=== PATIENT | male | born 1950 | race Asian ===

== ENCOUNTER 2017-02-28 08:27 | Emergency (ER) | payer MEDICARE, MEDICAID ==
[~2017-02-28] VITALS: Ht 182.9 cm; Wt 125.0 kg
[~2017-02-28 08:27] MED LIST: ALBU8.5H8 INH; BUDE10.2 INH; CEPH-368 PO; CYCL-259 PO; GABA-826 PO; HYDR25TA6 PO; INSU100V13 INJ; LISI-167 PO; LOVA20TA2 PO; METF500T4 PO; MONT10TA6 PO; NAPR500T PO; PRED20TA PO; TRAZ50TA18 PO
[2017-02-28] MEDS ORDERED: ASPIRIN 81 MG TABLET CHEW ONE (09:13)
[2017-02-28] MEDS ORDERED: ASPIRIN 81 MG TABLET CHEW PO ONE (09:30)
[2017-02-28] MEDS ORDERED: SODIUM CHLORIDE FLUSH 10ML SYR IVF ONE (09:30)
[2017-02-28 09:35] LABS: HEMATOCRIT 42.7 % (39.2-51.8); HEMOGLOBIN 14.4 g/dL (13.7-18.0); WHITE BLOOD COUNT 4.7 x10^3/uL (3.4-10)
[2017-02-28 09:45] LABS: BLOOD UREA NITROGEN 20 mg/dL (7-18)
[2017-02-28] MEDS ORDERED: GABA300C10 PO (09:47)
[2017-02-28] MEDS ORDERED: LOVA20TA2 PO (09:47)
[2017-02-28] MEDS ORDERED: ATOR10TA9 PO (09:47)
[2017-02-28] MEDS ORDERED: METF500T4 PO (09:47)
[2017-02-28] MEDS ORDERED: ALBU1.25 NEB (09:47)
[2017-02-28 09:50] LABS: ASPARTATE AMINO TRANSFERASE 24 U/L (15-37)
[2017-02-28 09:54] LABS: IS PT STATUS REG ER OR PRE ER? YES
[2017-02-28] MEDS ORDERED: ALBUTEROL SULFATE 2.5 MG/3 ML ONE (10:19)
[2017-02-28] MEDS ORDERED: LIDOCAINE 1%, 20ML SQ ONE (10:30)
[2017-02-28] MEDS ORDERED: ALBUTEROL SULFATE 2.5 MG/3 ML NPPB ONE (10:30)
[2017-02-28] MEDS ORDERED: LIDOCAINE 1%, 20ML ONE (10:45)
[2017-02-28 11:40] VITALS: BP 143/75
== END 2017-02-28 11:42 | disposition home or self-care (01) ==
LOC: MERGE 09:49 → ED 09:49
DX: L02.213 Cutaneous abscess of chest wall (principal); J20.8 Acute bronchitis due to other specified organisms; E11.65 Type 2 diabetes mellitus with hyperglycemia; J45.909 Unspecified asthma, uncomplicated
CPT/HCPCS: 10060; 36415; 71020; 80053; 84484; 85025; 93005; 94640; 99285; J7613

== ENCOUNTER 2017-03-03 08:08 | Emergency (ER) | payer MEDICARE, MEDICAID ==
[~2017-03-03] VITALS: Ht 182.9 cm; Wt 127.1 kg
[~2017-03-03 08:08] MED LIST changes: +ALBU1.25 NEB; +ATOR10TA9 PO; +GABA300C10 PO
[2017-03-03 08:10] VITALS: BP 151/80
[2017-03-03] MEDS ORDERED: BACITRACIN ZINC OINT 500U/GM, 0.9 GM ONE (08:50)
== END 2017-03-03 08:55 | disposition home or self-care (01) ==
LOC: ED 08:52
DX: L02.213 Cutaneous abscess of chest wall (principal); J44.9 Chronic obstructive pulmonary disease, unspecified; E11.65 Type 2 diabetes mellitus with hyperglycemia; I10 Essential (primary) hypertension; E78.00 Pure hypercholesterolemia, unspecified
CPT/HCPCS: 99283

== ENCOUNTER 2017-03-13 08:01 | Emergency (ER) | payer MEDICARE, MEDICAID ==
[~2017-03-13] VITALS: Ht 182.9 cm; Wt 124.0 kg
[2017-03-13] MEDS ORDERED: methylPREDNISolone SOD SUCC 125 MG/2 ML ONE (09:23)
[2017-03-13 09:30] LABS: HEMATOCRIT 42.3 % (39.2-51.8); HEMOGLOBIN 14.3 g/dL (13.7-18.0); WHITE BLOOD COUNT 5.1 x10^3/uL (3.4-10)
[2017-03-13] MEDS ORDERED: SODIUM CHLORIDE FLUSH 10ML SYR IVF ONE (09:30)
[2017-03-13] MEDS ORDERED: methylPREDNISolone SOD SUCC 125 MG/2 ML IVP ONE (09:30)
[2017-03-13] MEDS ORDERED: ALBUTEROL SULFATE 2.5 MG/3 ML NPPB ONE (09:30)
[2017-03-13] MEDS ORDERED: ALBUTEROL SULFATE 2.5 MG/3 ML ONE (09:30)
[2017-03-13 09:43] LABS: ASPARTATE AMINO TRANSFERASE 21 U/L (15-37); BLOOD UREA NITROGEN 21 mg/dL (7-18)
[2017-03-13 09:54] LABS: IS PT STATUS REG ER OR PRE ER? YES
[2017-03-13 10:14] VITALS: BP 113/65
== END 2017-03-13 10:20 | disposition home or self-care (01) ==
LOC: ED 08:55
DX: J44.9 Chronic obstructive pulmonary disease, unspecified (principal); I10 Essential (primary) hypertension; E11.65 Type 2 diabetes mellitus with hyperglycemia; E78.00 Pure hypercholesterolemia, unspecified; Z87.891 Personal history of nicotine dependence
CPT/HCPCS: 36415; 71010; 80053; 83880; 84443; 84484; 85025; 85610; 93005; 94640; 96374; 99285; J2930; J7613

== ENCOUNTER 2017-06-01 18:50 | Inpatient (IN) | payer MEDICARE, MEDICAID ==
[~2017-06-01] VITALS: Ht 182.9 cm; Wt 117.3 kg
[~2017-06-01 18:50] MED LIST changes: +NAPR-856 PO; -NAPR500T PO; +OSEL75CA PO
[2017-06-01] MEDS ORDERED: SODIUM CHLORIDE FLUSH 10ML SYR IVF ONE (20:00)
[2017-06-01 20:30] LABS: BASOPHILS # (AUTO) 0.02 x10^3/uL (0-0.1); BASOPHILS % (AUTO) 0 % (0-1); EOSINOPHILS # (AUTO) 0.17 x10^3/uL (0-0.4); EOSINOPHILS % (AUTO) 2 % (1-7); LYMPHOCYTES # (AUTO) 0.97 x10^3/uL (1-3.4); LYMPHOCYTES % (AUTO) 11 % (22-44); MD NO; MEAN CORPUSCULAR HEMOGLOBIN 29.7 pg (27.5-34.5); MEAN CORPUSCULAR HGB CONC 33.2 g/dL (33.2-36.2); MEAN CORPUSCULAR VOLUME 89.5 fL (81-97); MEAN PLATELET VOLUME 7.8 fL (7.4-10.4); MONOCYTES # (AUTO) 0.61 x10^3/uL (0.2-0.8); MONOCYTES % (AUTO) 7 % (2-9); NEUTROPHILS # (AUTO) 7.05 x10^3/uL (1.8-6.8); NEUTROPHILS % (AUTO) 80 % (42-75); PLATELET COUNT 206 x10^3/uL (130-400); RED BLOOD COUNT 4.71 x10^6/uL (4.38-5.82); RED CELL DISTRIBUTION WIDTH 15.6 % (9.4-14.8)
[2017-06-01 20:42] LABS: ANION GAP 8 mmol/L (5-15); CALCIUM 8.7 mg/dL (8.5-10.1); CHLORIDE 105 mmol/L (98-107); CREATININE 1.33 mg/dL (0.7-1.3)
[2017-06-01 20:43] LABS: ALBUMIN 2.9 g/dL (3.4-5.0)
[2017-06-01 20:46] LABS: TROPONIN I < 0.015 ng/mL (0.000-0.045)
[2017-06-01] MEDS ORDERED: ALBUTEROL/IPRATROPIUM 2.5MG/0.5MG, 3 ML ONE (20:46)
[2017-06-01] MEDS ORDERED: CEFTRIAXONE PMX 1GM/50ML 50 ML ONE (20:50)
[2017-06-01] MEDS ORDERED: SODIUM CHLORIDE 0.9% 1,000ML IVBOLUS ONE (21:00)
[2017-06-01] MEDS ORDERED: CEFTRIAXONE PMX 1GM/50ML 50 ML IV ONE (21:00)
[2017-06-01] MEDS ORDERED: AZITHROMYCIN 500 MG in SODIUM CHLORIDE 0.9% 250 ML IV ONE (21:00)
[2017-06-01] MEDS ORDERED: ALBUTEROL/IPRATROPIUM 2.5MG/0.5MG, 3 ML NPPB ONE (21:00)
[2017-06-01] MEDS ORDERED: SODIUM CHLORIDE FLUSH 10ML SYR IVF PRN (23:00)
[2017-06-02] MEDS ORDERED: ALBUTEROL/IPRATROPIUM 2.5MG/0.5MG, 3 ML NPPB PRN
[2017-06-02] MEDS ORDERED: ONDANSETRON 2MG/ML, 2ML IVPush PRN
[2017-06-02] MEDS ORDERED: VANCOMYCIN PER PHARMACY MC PRN
[2017-06-02 00:33] VITALS: BP 118/69
[2017-06-02] MEDS: CEFEPIME 2 GM in DEXTROSE 5% 100 ML IV SCH ×2 (00:56→11:52)
[2017-06-02] MEDS ORDERED: PHARMACOKINETIC CONSULTATION MC ONE (01:00)
[2017-06-02] MEDS ORDERED: PHARMACOKINETIC MONITORING MC PRN (01:00)
[2017-06-02] MEDS: VANCOMYCIN 2,200 MG in SODIUM CHLORIDE 0.9% 500 ML IV SCH (01:50)
[2017-06-02] MEDS: ACETAMINOPHEN 325 MG TABLET PO PRN ×3 (05:26→14:39)
[2017-06-02] MEDS: GUAIFENESIN/DM 200-20MG, 10ML UDC PO PRN ×4 (05:26→18:55)
[2017-06-02 06:55] VITALS: BP 104/62
[2017-06-02] MEDS: ALBUTEROL/IPRATROPIUM 2.5MG/0.5MG, 3 ML NPPB SCH ×4 (07:00→19:22)
[2017-06-02] MEDS: BUDESONIDE 0.5 MG/2 ML INHA INH SCH ×2 (08:10→19:22)
[2017-06-02] MEDS: GABAPENTIN 100 MG CAPSULE PO SCH ×2 (09:49→21:13)
[2017-06-02 12:13] LABS: HEMOGLOBIN A1C 7.3 % (4.2-6.3)
[2017-06-02] MEDS: INSULIN REGULAR 100 UNITS/ML, 3ML VIAL SQ-INSULIN SCH ×3 (12:20→21:12)
[2017-06-02 12:31] VITALS: BP 119/57
[2017-06-02 19:45] VITALS: BP 119/64
[2017-06-02] MEDS: ATORVASTATIN 10 MG TABLET PO SCH (21:13)
[2017-06-03] MEDS: GUAIFENESIN/DM 200-20MG, 10ML UDC PO PRN ×3 (00:38→11:13)
[2017-06-03] MEDS: CEFEPIME 2 GM in DEXTROSE 5% 100 ML IV SCH ×2 (00:38→12:34)
[2017-06-03] MEDS: VANCOMYCIN 2,200 MG in SODIUM CHLORIDE 0.9% 500 ML IV SCH (01:20)
[2017-06-03] MEDS: ACETAMINOPHEN 325 MG TABLET PO PRN ×2 (01:20→14:42)
[2017-06-03 01:45] VITALS: BP 122/65
[2017-06-03 05:29] LABS: CALCIUM 7.5 mg/dL (8.5-10.1); CHLORIDE 106 mmol/L (98-107)
[2017-06-03 05:33] LABS: ANION GAP 9 mmol/L (5-15); CREATININE 1.11 mg/dL (0.7-1.3)
[2017-06-03 05:36] LABS: BASOPHILS # (AUTO) 0.02 x10^3/uL (0-0.1); BASOPHILS % (AUTO) 0 % (0-1); EOSINOPHILS # (AUTO) 0.11 x10^3/uL (0-0.4); EOSINOPHILS % (AUTO) 2 % (1-7); LYMPHOCYTES # (AUTO) 1.19 x10^3/uL (1-3.4); LYMPHOCYTES % (AUTO) 19 % (22-44); MD NO; MEAN CORPUSCULAR HEMOGLOBIN 29.9 pg (27.5-34.5); MEAN CORPUSCULAR HGB CONC 33.7 g/dL (33.2-36.2); MEAN CORPUSCULAR VOLUME 88.7 fL (81-97); MEAN PLATELET VOLUME 7.5 fL (7.4-10.4); MONOCYTES # (AUTO) 0.59 x10^3/uL (0.2-0.8); MONOCYTES % (AUTO) 10 % (2-9); NEUTROPHILS # (AUTO) 4.25 x10^3/uL (1.8-6.8); NEUTROPHILS % (AUTO) 69 % (42-75); PLATELET COUNT 192 x10^3/uL (130-400); RED BLOOD COUNT 3.92 x10^6/uL (4.38-5.82); RED CELL DISTRIBUTION WIDTH 15.4 % (9.4-14.8)
[2017-06-03] MEDS: BUDESONIDE 0.5 MG/2 ML INHA INH SCH ×2 (07:42→19:39)
[2017-06-03] MEDS: ALBUTEROL/IPRATROPIUM 2.5MG/0.5MG, 3 ML NPPB SCH ×3 (07:42→19:38)
[2017-06-03] MEDS: GABAPENTIN 100 MG CAPSULE PO SCH ×2 (07:57→20:20)
[2017-06-03] MEDS: INSULIN REGULAR 100 UNITS/ML, 3ML VIAL SQ-INSULIN SCH ×4 (07:58→20:25)
[2017-06-03 08:20] VITALS: BP 138/62
[2017-06-03 13:00] VITALS: BP 105/62
[2017-06-03] MEDS: ATORVASTATIN 10 MG TABLET PO SCH (20:20)
[2017-06-03 21:11] VITALS: BP 113/69
[2017-06-04] MEDS: ACETAMINOPHEN 325 MG TABLET PO PRN ×3 (00:01→16:17)
[2017-06-04] MEDS: CEFEPIME 2 GM in DEXTROSE 5% 100 ML IV SCH ×2 (00:02→14:23)
[2017-06-04 00:42] VITALS: BP 120/64
[2017-06-04] MEDS: VANCOMYCIN 2,200 MG in SODIUM CHLORIDE 0.9% 500 ML IV SCH (01:18)
[2017-06-04] MEDS: INSULIN REGULAR 100 UNITS/ML, 3ML VIAL SQ-INSULIN SCH ×4 (07:00→21:17)
[2017-06-04 07:36] VITALS: BP 127/68
[2017-06-04] MEDS: GABAPENTIN 100 MG CAPSULE PO SCH ×2 (07:44→21:51)
[2017-06-04] MEDS: GUAIFENESIN/DM 200-20MG, 10ML UDC PO PRN (07:44)
[2017-06-04] MEDS: BUDESONIDE 0.5 MG/2 ML INHA INH SCH ×3 (09:00→20:25)
[2017-06-04] MEDS: ALBUTEROL/IPRATROPIUM 2.5MG/0.5MG, 3 ML NPPB SCH ×3 (11:15→20:25)
[2017-06-04 15:29] VITALS: BP 126/66
[2017-06-04 20:37] VITALS: BP 126/73
[2017-06-04] MEDS: ATORVASTATIN 10 MG TABLET PO SCH (21:17)
[2017-06-05] MEDS: CEFEPIME 2 GM in DEXTROSE 5% 100 ML IV SCH ×2 (02:17→14:02)
[2017-06-05 02:54] VITALS: BP 123/70
[2017-06-05] MEDS: GUAIFENESIN/DM 200-20MG, 10ML UDC PO PRN (03:44)
[2017-06-05 05:20] LABS: BASOPHILS % (AUTO) 0 % (0-1); EOSINOPHILS % (AUTO) 0 % (1-7); LYMPHOCYTES # (AUTO) 1.03 x10^3/uL (1-3.4); LYMPHOCYTES % (AUTO) 16 % (22-44); MD NO; MEAN CORPUSCULAR HEMOGLOBIN 29.6 pg (27.5-34.5); MEAN CORPUSCULAR HGB CONC 33.4 g/dL (33.2-36.2); MEAN CORPUSCULAR VOLUME 88.5 fL (81-97); MEAN PLATELET VOLUME 7.7 fL (7.4-10.4); MONOCYTES # (AUTO) 0.67 x10^3/uL (0.2-0.8); MONOCYTES % (AUTO) 11 % (2-9); NEUTROPHILS # (AUTO) 4.58 x10^3/uL (1.8-6.8); NEUTROPHILS % (AUTO) 73 % (42-75); PLATELET COUNT 199 x10^3/uL (130-400); RED BLOOD COUNT 3.94 x10^6/uL (4.38-5.82); RED CELL DISTRIBUTION WIDTH 15.2 % (9.4-14.8)
[2017-06-05 05:29] LABS: CHLORIDE 105 mmol/L (98-107)
[2017-06-05 05:37] LABS: ANION GAP 8 mmol/L (5-15); CALCIUM 8.3 mg/dL (8.5-10.1); CREATININE 1.03 mg/dL (0.7-1.3)
[2017-06-05 06:46] VITALS: BP 112/60
[2017-06-05] MEDS: INSULIN REGULAR 100 UNITS/ML, 3ML VIAL SQ-INSULIN SCH ×3 (07:41→16:06)
[2017-06-05] MEDS: GABAPENTIN 100 MG CAPSULE PO SCH (07:42)
[2017-06-05] MEDS: ALBUTEROL/IPRATROPIUM 2.5MG/0.5MG, 3 ML NPPB SCH ×2 (09:00→15:47)
[2017-06-05] MEDS: BUDESONIDE 0.5 MG/2 ML INHA INH SCH (09:00)
[2017-06-05 14:05] VITALS: BP 136/77
[2017-06-05] MEDS ORDERED: PRED10TA PO (15:24)
[2017-06-05] MEDS ORDERED: CEFD300C37 PO (15:24)
[2017-06-05 18:00] VITALS: BP 132/75
== END 2017-06-05 18:50 | disposition home or self-care (01) | DRG 189 ==
LOC: ED 21:12 → EDIP 22:35 → 4NOR 06-02 00:25
PROVIDERS: ADMIT Internal Medicine; ATTEND Internal Medicine
DX: J96.21 Acute and chronic respiratory failure with hypoxia (principal); J15.9 Unspecified bacterial pneumonia; E11.22 Type 2 diabetes mellitus with diabetic chronic kidney disease; I13.0 Hypertensive heart and chronic kidney disease with heart failure and stage 1 through stage 4 chronic kidney disease, or unspecified chronic kidney disease; J44.0 Chronic obstructive pulmonary disease with (acute) lower respiratory infection; I50.30 Unspecified diastolic (congestive) heart failure; J45.901 Unspecified asthma with (acute) exacerbation; D64.9 Anemia, unspecified; I44.7 Left bundle-branch block, unspecified; M79.89 Other specified soft tissue disorders; N18.9 Chronic kidney disease, unspecified; Z79.4 Long term (current) use of insulin; Z87.891 Personal history of nicotine dependence; Z95.0 Presence of cardiac pacemaker
CPT/HCPCS: 36415; 71045; 80048; 80307; 82040; 82962; 83036; 83605; 83880; 84145; 84484; 85025; 87040; 93005; 94640; 96365; 96367; J0456; J0696; J1815; J3370; J7620; J7626; J7030; J7040; J7050; J7512

== ENCOUNTER → 2017-07-25 | Outpatient (CLI) | payer MEDICARE, MEDICAID ==
[~2017-07-25] MED LIST changes: +CEFD300C37 PO; +PRED10TA PO
== END ==
LOC: CFH 14:45
PROVIDERS: ATTEND Internal Medicine
DX: I25.10 Atherosclerotic heart disease of native coronary artery without angina pectoris (principal); J44.0 Chronic obstructive pulmonary disease with (acute) lower respiratory infection; J43.9 Emphysema, unspecified; J47.0 Bronchiectasis with acute lower respiratory infection
CPT/HCPCS: 71250

== ENCOUNTER → 2017-08-22 | Outpatient (CLI) | payer MEDICARE, MEDICAID | END | disposition home or self-care (01) | LOC: CFH 14:56 | PROVIDERS: ATTEND Nurse Practitioner | DX: J47.9 Bronchiectasis, uncomplicated (principal) | CPT/HCPCS: 71046 ==

== ENCOUNTER 2017-12-28 14:12 | Emergency (ER) | payer MEDICARE, MEDICAID ==
[~2017-12-28] VITALS: Ht 182.9 cm; Wt 125.4 kg
[~2017-12-28 14:12] MED LIST changes: -METF500T4 PO; +METF500T5 PO; +TRAZ-136 PO; -TRAZ50TA18 PO
[2017-12-28 14:17] VITALS: BP 158/77
== END 2017-12-28 15:03 | disposition home or self-care (01) ==
LOC: ED 14:57
DX: L02.213 Cutaneous abscess of chest wall (principal); J44.9 Chronic obstructive pulmonary disease, unspecified; I10 Essential (primary) hypertension; E78.00 Pure hypercholesterolemia, unspecified; E11.9 Type 2 diabetes mellitus without complications; Z87.891 Personal history of nicotine dependence
CPT/HCPCS: 10060; 99283